=== PATIENT | female | born 2000 | race Two or more races ===

== ENCOUNTER 2020-04-20 07:03 | Inpatient (IN) | payer MEDICAID ==
[2020-04-20 08:13] LABS: BACTERIA (WET MOUNT) 3+ BACTERIA SEEN; RBCS (WET MOUNT) FEW RBCS SEEN; T.VAGINALIS (WET MOUNT) NO TRICHOMONAS SEEN; WBCS (WET MOUNT) 2+ WBCS SEEN; YEAST (WET MOUNT) NO YEAST SEEN
[2020-04-20 08:20] LABS: ABSOLUTE EOSINOPHILS # (AUTO) 0.2 10^3/uL (0.0-0.6); ABSOLUTE LYMPHOCYTES (AUTO) 2.3 10^3/uL (0.5-4.7); ABSOLUTE NEUT (AUTO) 9.7 10^3/uL (1.7-8.2); BASOPHILS % (AUTO) 0.3 % (0-2); EOSINOPHILS % (AUTO) 1.7 % (0-6); HEMATOCRIT 35.2 % (36.0-47.0); HEMOGLOBIN 11.6 g/dL (12.0-15.5); LYMPHOCYTES % (AUTO) 17.1 % (13-45); MEAN CORPUSCULAR HEMOGLOBIN 27.9 pg (27.0-33.4); MEAN CORPUSCULAR VOLUME 84 fl (80-97); MONOCYTES % (AUTO) 7.4 % (3-13); PLATELET COUNT 235 10^3/uL (150-450); RED BLOOD COUNT 4.18 10^6/uL (3.72-5.28); RED CELL DISTRIBUTION WIDTH 17.7 % (11.5-14.0); SEGMENTED NEUTROPHILS % (AUTO) 73.5 % (42-78); TOTAL CELLS COUNTED % (AUTO) 100 %; WHITE BLOOD COUNT 13.2 10^3/uL (4.0-10.5)
[2020-04-20 08:21] LABS: APPEARANCE,URINE SLIGHTLY-CLOUDY; BILIRUBIN,URINE NEGATIVE (NEGATIVE); COLOR,URINE YELLOW; GLUCOSE, URINE NEGATIVE (NEGATIVE); KETONES,URINE NEGATIVE (NEGATIVE); LEUKOCYTE ESTERASE,URINE MODERATE (NEGATIVE); NITRITE,URINE NEGATIVE (NEGATIVE); PROTEIN,URINE NEGATIVE (NEGATIVE); URINE SPECIFIC GRAVITY 1.016; UROBILINOGEN,URINE NEGATIVE mg/dL (<2.0)
[2020-04-20 08:30] LABS: URINE AMPHETAMINES SCREEN NEGATIVE; URINE BARBITURATES SCREEN NEGATIVE; URINE BENZODIAZEPINES SCREEN NEGATIVE; URINE COCAINE SCREEN NEGATIVE; URINE MARIJUANA (THC) SCREEN NEGATIVE; URINE METHADONE SCREEN NEGATIVE; URINE PHENCYCLIDINE SCREEN NEGATIVE
[2020-04-20] MEDS ORDERED: RINGERS SOLUTION,LACTATED 1,000 ML IV PRN (08:44)
[2020-04-20] MEDS ORDERED: CEFAZOLIN 2 GM/D5W RTU 2 GM/50 ML RTUPB IV ONE (09:00)
[2020-04-20] MEDS ORDERED: CITRIC ACID/SODIUM CITRATE ORAL SOLN 15 ML UDCUP ONE (09:00)
[2020-04-20] MEDS ORDERED: CEFAZOLIN SODIUM 2 GM in DEXTROSE 5%-WATER 50 ML IV PRN (09:00)
[2020-04-20] MEDS ORDERED: METHYLERGONOVINE MALEATE INJ/PF 0.2 MG/1 ML AMPULE ONE (09:19)
[2020-04-20] MEDS ORDERED: KETOROLAC TROMETHAMINE INJ/PF 30 MG/1 ML SDV ONE (09:19)
[2020-04-20] MEDS ORDERED: MIDAZOLAM 2 MG/2 ML INJ ONE (09:19)
[2020-04-20] MEDS ORDERED: ACETAMINOPHEN 1,000 MG/100 ML RTUPB IV ONE (09:19)
[2020-04-20] MEDS ORDERED: FENTANYL CITRATE INJ/PF 100 MCG/2 ML AMPUL ONE ×3 (09:19→10:54)
[2020-04-20] MEDS ORDERED: ONDANSETRON HCL INJ/PF 4 MG/2 ML SDV ONE (09:19)
[2020-04-20] MEDS ORDERED: OXYTOCIN 10 UNIT/ML VIAL ONE (09:19)
[2020-04-20] MEDS ORDERED: EPHEDRINE SULFATE INJ 50 MG/1 ML AMPULE ONE (09:20)
--- NOTE | 2020-04-20 09:20 | Admission Physical ---
Datetime Report Generated by CPN: 04/20/2020 09:20 CURRENT ADMISSION Chief Complaint: Maternal Discomfort Indication for Induction: Not Applicable Admit Impression : Term, Intrauterine ; No Active Labor Admit Plan: Admit to Unit; Initiate Section Protocol ALLERGIES Medication Allergies: No Medication Allergies: No Known Allergies (04/20/2020) Latex: No Latex Allergies OBSTETRICAL HISTORY EDC: 04/14/2020 00:00 : 1 Para: 0 Term: 0 : 0 SAB: 0 IAB: 0 [place] PHYSICAL EXAM General: Normal HEENT: Normal Neurologic: Normal Thyroid: Normal Heart: Normal Lungs: Normal Breast: Normal Back: Normal Abdomen: Normal Genitourinary Exam: Normal Extremities: Normal DTRs: Normal Pelvic Type: Adequate Vital Signs: Reviewed; Within Normal Limits VAGINAL EXAM Dilatation: 0 FETUS A EGA: 40.6 Monitoring: External US FHR- Baseline: 105 Variability: Marked >25bpm Accelerations: 15X15 Decelerations: None FHR Category: Category II Estimated Weight (gm): 3224 Presentation: Vertex Admit Comment: patient presented with c/o back pain. NST category 2 with multiple decels and a questionable low baseline. Decels easily audible in room and suggestive of distress. d/w pt and recommend emergent delivery via c/section due to questionable status. INFORMED CONSENT Signature: with User ID: [email or web address]
--- NOTE | 2020-04-20 09:23 | RADIOLOGY REPORT (SQ) ---
EXAM DESCRIPTION: U/S OB LIMITED IMAGES COMPLETED DATE/TIME: 04/20/2020 8:51 am REASON FOR STUDY: no care COMPARISON: None. TECHNIQUE: Limited transvaginal grayscale ultrasound for evaluation of specific requested obstetrica l parameters. LIMITATIONS: None. FINDINGS: CERVICAL LENGTH: 2.4 cm. Closed. PAXTON: 3.9 cm. FHR: 124 beats per minute. PRESENTATION: Cephalic. PLACENTA: Anterior ANATOMY: Limited evaluation. OTHER: Estimated gestational age 37 weeks 4 days. Estimated due date 05/07/2020. Estimated weig ht 3224 g. IMPRESSION: LIMITED OBSTETRICAL ULTRASOUND WITH MEASURED PARAMETERS DELINEATED ABOVE. Trimester of : Third trimester - 28 weeks to delivery. TECHNICAL DOCUMENTATION: JOB ID: [id number] [employer]- All Rights Reserved Reading location - IP/workstation name: [email or web address]
[2020-04-20 09:42] LABS: CHLAM PCR DETECTED (NOT DETECT)
[2020-04-20] MEDS ORDERED: MORPHINE SULFATE 10 MG/ML INJ IV PRN ×2 (10:04→10:25)
[2020-04-20] MEDS ORDERED: FENTANYL CITRATE INJ/PF 100 MCG/2 ML AMPUL IV PRN ×2 (10:04)
[2020-04-20] MEDS ORDERED: MEPERIDINE HCL/PF INJ 25 MG/1 ML DISP.SYRIN IV PRN (10:04)
[2020-04-20] MEDS ORDERED: DIPHENHYDRAMINE HCL 50 MG/ML VIAL IV PRN (10:04)
[2020-04-20] MEDS ORDERED: OXYCODONE-ACETAMINOPHEN 5-325 MG TABLET PO PRN ×3 (10:04→10:25)
[2020-04-20] MEDS ORDERED: ONDANSETRON HCL INJ/PF 4 MG/2 ML SDV IV PRN (10:04)
[2020-04-20] MEDS ORDERED: PROMETHAZINE HCL INJ 25 MG/1 ML VIAL IV PRN ×3 (10:04→10:25)
[2020-04-20] MEDS ORDERED: AZITHROMYCIN INJ 500 MG VIAL IV ONE ×2 (10:21→10:25)
--- NOTE | 2020-04-20 10:24 | Operative Report ---
Operative Report DATE OF SURGERY: 04/20/20 PREOPERATIVE DIAGNOSIS: IUP at 40 weeks and 6 days, no care, oligo hy dramnios. Nonreassuring heart tones, category 2 strip POSTOPERATIVE DIAGNOSIS: Same OPERATION: Primary low transverse hysterotomy section SURGEON: FAITH MARION ANESTHESIA: Spinal TISSUE REMOVED OR ALTERED: Placenta COMPLICATIONS: None ESTIMATED BLOOD LOSS: 600 INTRAOPERATIVE FINDINGS: Male infant cephalic presentation with Apgars of 9 and 9, amniotic fluid was absent PROCEDURE: PROCEDURE IN DETAIL: The patient was taken to the operating room, prepared and draped in a normal sterile fashion in a supine position with a leftward tilt. A transverse skin incision was made with a scalpel and carried through to the underlying layer of fascia with the same scalpel. The fascia was excised in the midline and extended laterally with Kemar. The fascia was then dissected from the rectus muscle sharply with Kemar and the rectus muscle was divided and the peritoneal cavity was entered sharply with the same Metzenbaum. With good visualization of the bladder and the uterus the bladder blade was inserted. The hysterotomy was nicked with a scalpel and extended laterally with surgeon finger fraction. The infant was then delivered atraumatically. The nose and mouth were suctioned with a suction bulb, the cord was clamped and cut and handed off to awaiting pediatricians. Cord blood was collected. The placenta was removed manually. The uterus was exteriorized and cleared of clots and debris. The hysterotomy was closed with 0 Monocryl in a running, locked fashion. A second layer of the same suture was used to imbricate to ensure hemostasis. The uterus was returned to the abdomen and peritoneal cavity was cleared of clots and debris. The rectus muscle and peritoneum were repaired with mattress stitch of 2-0 Chromic. The fascia was closed with 0-Vicryl. The subcutaneous layer was closed with plain catgut and the skin was closed with 4-0 Vicryl. The patient tolerated the procedure well. Sponge, lap, and needle counts correct x2 and the patient was taken to recovery in stable condition.
[2020-04-20] MEDS ORDERED: MEASLES,MUMPS&RUBELLA VACC/PF 0.5 ML VIAL SUBCUT PRN (10:25)
[2020-04-20] MEDS ORDERED: SIMETHICONE 80 MG TAB.CHEW PO PRN (10:25)
[2020-04-20] MEDS ORDERED: OXYTOCIN/0.9 % SODIUM CHLORIDE 30 UNIT/500 ML RTUINJ IV PRN (10:25)
[2020-04-20] MEDS ORDERED: ACETAMINOPHEN 325 MG TABLET PO PRN (10:25)
[2020-04-20] MEDS ORDERED: ACETAMINOPHEN 1,000 MG/100 ML RTUPB IV PRN (10:25)
[2020-04-20] MEDS ORDERED: DIPH/PERTUSS(ACELL)/TETANUS VAC/PF 0.5 ML SYR (>=10YO) IM PRN (10:25)
[2020-04-20] MEDS: FENTANYL CITRATE INJ/PF 100 MCG/2 ML AMPUL IV PRN ×2 (10:29→10:55)
[2020-04-20] MEDS ORDERED: OXYTOCIN/0.9 % SODIUM CHLORIDE 30 UNIT/500 ML RTUINJ ONE (10:31)
[2020-04-20] MEDS ORDERED: ROPIVACAINE HCL 0.2% INJ/PF (2 MG/ML) 20 ML SDV ONE (10:38)
[2020-04-20] MEDS ORDERED: EPINEPHRINE INJ/PF 1 MG/1 ML AMPULE ONE (10:38)
[2020-04-20] MEDS ORDERED: MORPHINE SULFATE 10 MG/ML INJ ONE (11:42)
[2020-04-20] MEDS: OXYCODONE-ACETAMINOPHEN 5-325 MG TABLET PO PRN ×2 (13:11→23:44)
[2020-04-20] MEDS: KETOROLAC TROMETHAMINE INJ/PF 30 MG/1 ML SDV IV SCH (17:37)
[2020-04-20] MEDS: DOCUSATE SODIUM 100 MG CAPSULE PO SCH (17:38)
[2020-04-20] MEDS: RINGERS SOLUTION,LACTATED 1,000 ML IV PRN (17:42)
[2020-04-21] MEDS: KETOROLAC TROMETHAMINE INJ/PF 30 MG/1 ML SDV IV SCH (01:35)
[2020-04-21] MEDS: RINGERS SOLUTION,LACTATED 1,000 ML IV PRN (01:36)
[2020-04-21] MEDS: OXYCODONE-ACETAMINOPHEN 5-325 MG TABLET PO PRN ×2 (06:14→18:42)
[2020-04-21 07:41] LABS: HEMATOCRIT 21.2 % (36.0-47.0); MEAN CORPUSCULAR HEMOGLOBIN 28.2 pg (27.0-33.4); MEAN CORPUSCULAR HGB CONC 33.3 g/dL (32.0-36.0); MEAN CORPUSCULAR VOLUME 85 fl (80-97); PLATELET COUNT 179 10^3/uL (150-450); RED BLOOD COUNT 2.51 10^6/uL (3.72-5.28); RED CELL DISTRIBUTION WIDTH 17.4 % (11.5-14.0); WHITE BLOOD COUNT 13.8 10^3/uL (4.0-10.5)
[2020-04-21 07:56] LABS: HEMOGLOBIN 7.1 g/dL (12.0-15.5)
[2020-04-21] MEDS ORDERED: MEASLES,MUMPS&RUBELLA VACC/PF 0.5 ML VIAL SUBCUT PRN (08:30)
[2020-04-21] MEDS ORDERED: PROMETHAZINE HCL INJ 25 MG/1 ML VIAL IV PRN (08:30)
[2020-04-21] MEDS ORDERED: DIPH/PERTUSS(ACELL)/TETANUS VAC/PF 0.5 ML SYR (>=10YO) IM PRN (08:30)
--- NOTE | 2020-04-21 08:33 | PDOC PROGRESS REPORT ---
Subjective-OB Progress Note for:: 04/21/20 Physical Exam (OB) Vital Signs: Temp Pulse Resp BP Pulse Ox 98.5 F 97 18 105/55 L 99 04/21/20 04:23 04/21/20 04:23 04/21/20 04:23 04/21/20 04:23 04/21/20 04:23 Intake & Output 04/20/20 04/21/20 04/22/20 06:59 06:59 06:59 Intake Total 1528 Output Total 575 Balance 953 Weight 66.9 kg - General General Appearance: Appears well Note:: Admit hgb 11.6. This am 7.4. Not symptomatic. Ambulating without problem. Will give iv iron. - Dressing Removed: No Incision: Dressing Closure Type: Opsite - Lochia Lochia Amount: Scant < 10 ml Lochia Color: Rubra/Red - Abdomen Description: Soft, Round Hernia Present: No Bowel Sounds: Normoactive Flatus Presence: Absent Stool: No Fundal Description: Firm, Midline Fundal Height: u/u - u/2 Objective-Diagnostic Laboratory: 04/21/20 07:02 04/20/20 04/20/20 04/20/20 07:34 07:55 09:08 WBC 13.2 H RBC 4.18 Hgb 11.6 L Hct 35.2 L MCV 84 MCH 27.9 MCHC 33.0 RDW 17.7 H Plt Count 235 Seg Neutrophils % 73.5 Urine Color YELLOW Urine Appearance SLIGHTLY-CLOUDY Urine pH 6.0 Ur Specific [place] 1.016 Urine Protein NEGATIVE Urine Glucose (UA) NEGATIVE Urine Ketones NEGATIVE Urine Blood MODERATE H Urine Nitrite NEGATIVE Ur Leukocyte Esterase MODERATE H Urine WBC (Auto) 20 Urine RBC (Auto) 7 Blood Type A POSITIVE Antibody Screen NEGATIVE 04/21/20 07:02 WBC 13.8 H RBC 2.51 L Hgb 7.1 L D Hct 21.2 L MCV 85 MCH 28.2 MCHC 33.3 RDW 17.4 H Plt Count 179 Seg Neutrophils % Urine Color Urine Appearance Urine pH Ur Specific [place] Urine Protein Urine Glucose (UA) Urine Ketones Urine Blood Urine Nitrite Ur Leukocyte Esterase Urine WBC (Auto) Urine RBC (Auto) Blood Type Antibody Screen
[2020-04-21] MEDS ORDERED: IRON SUCROSE COMPLEX INJ/PF 100 MG/5 ML SDV IV ONE (09:00)
[2020-04-21] MEDS: DOCUSATE SODIUM 100 MG CAPSULE PO SCH ×2 (09:30→18:40)
[2020-04-21] MEDS: PRENATAL VITAMIN W DHA CAPSULE PO SCH (09:30)
[2020-04-21] MEDS: IBUPROFEN 800 MG TABLET PO SCH ×3 (12:03→23:24)
[2020-04-22] MEDS: IBUPROFEN 800 MG TABLET PO SCH ×4 (05:30→23:10)
[2020-04-22 08:05] LABS: HEPATITS B SURFACE ANTIGEN Negative (Negative)
[2020-04-22] MEDS: PRENATAL VITAMIN W DHA CAPSULE PO SCH (09:14)
[2020-04-22] MEDS: DOCUSATE SODIUM 100 MG CAPSULE PO SCH ×2 (09:14→17:35)
[2020-04-22] MEDS ORDERED: IRON SUCROSE COMPLEX INJ/PF 100 MG/5 ML SDV IV ONE (11:12)
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
[2020-04-23] MEDS: IBUPROFEN 800 MG TABLET PO SCH ×2 (05:11→12:00)
[2020-04-23] MEDS: OXYCODONE-ACETAMINOPHEN 5-325 MG TABLET PO PRN (06:40)
[2020-04-23 09:47] LABS: ABSOLUTE EOSINOPHILS # (AUTO) 0.4 10^3/uL (0.0-0.6); ABSOLUTE LYMPHOCYTES (AUTO) 1.8 10^3/uL (0.5-4.7); ABSOLUTE MONOCYTES (AUTO) 0.5 10^3/uL (0.1-1.4); ABSOLUTE NEUT (AUTO) 7.2 10^3/uL (1.7-8.2); BASOPHILS % (AUTO) 0.3 % (0-2); HEMATOCRIT 20.8 % (36.0-47.0); MEAN CORPUSCULAR HEMOGLOBIN 29.1 pg (27.0-33.4); MEAN CORPUSCULAR HGB CONC 33.5 g/dL (32.0-36.0); MEAN CORPUSCULAR VOLUME 87 fl (80-97); MONOCYTES % (AUTO) 5.2 % (3-13); PLATELET COUNT 222 10^3/uL (150-450); RED BLOOD COUNT 2.39 10^6/uL (3.72-5.28); SEGMENTED NEUTROPHILS % (AUTO) 72.5 % (42-78); TOTAL CELLS COUNTED % (AUTO) 100 %; WHITE BLOOD COUNT 9.9 10^3/uL (4.0-10.5)
[2020-04-23] MEDS: DOCUSATE SODIUM 100 MG CAPSULE PO SCH (09:55)
[2020-04-23] MEDS: PRENATAL VITAMIN W DHA CAPSULE PO SCH (09:55)
--- NOTE | 2020-04-23 12:19 | PDOC DISCHARGE SUMMARY ---
Impression - Admit/DC Date/PCP Admission Date/Primary Care Provider: 04/20/20 09:00 FAITH MARION MD Discharge Date: 04/23/20 - Discharge Diagnosis (1) Non-reassuring electronic monitoring tracing Is this a current diagnosis for this admission?: Yes (2) Smoker Is this a current diagnosis for this admission?: Yes (3) Chlamydia infection Is this a current diagnosis for this admission?: Yes (4) Insufficient antepartum care Is this a current diagnosis for this admission?: Yes (5) Delivery by emergency caesarean section Is this a current diagnosis for this admission?: Yes (6) Is this a current diagnosis for this admission?: Yes (7) Acute blood loss anemia Is this a current diagnosis for this admission?: Yes - Assessment Summary: 19yo G1 now P1 s/p primary ppd3. Stable and ready for discharge. Understands all warning s/s and how/when to seek immediate care. Also understands she needs to rtc for incision check. - Additional Information Resuscitation Status: Full Code Discharge Diet: As Tolerated, Regular Discharge Activity: Activity As Tolerated, Balance Activity w/Rest, No Lifting Over 10 Pounds, No Lifting/Push/Pulling, Pelvic Rest, No tub bath, Walk Frequently Referrals: FAITH MARION MD [Primary Care Provider] - Prescriptions: Oxycodone HCl/Acetaminophen [Percocet 5-325 mg Tablet] 1 tab PO Q4HP PRN #30 tablet PRN Reason: For Pain Scale 3-5 Ibuprofen [Motrin 800 mg Tablet] 800 mg PO Q8HP PRN #60 tablet PRN Reason: Home Medications: Ibuprofen [Motrin 800 mg Tablet] 800 mg PO Q8HP PRN #60 tablet 04/22/20 Oxycodone HCl/Acetaminophen [Percocet 5-325 mg Tablet] 1 tab PO Q4HP PRN #30 tablet 04/22/20 Results Laboratory Results: WBC 9.9 10^3/uL (4.0-10.5) 04/23/20 09:15 RBC 2.39 10^6/uL (3.72-5.28) L 04/23/20 09:15 Hgb 7.0 g/dL (12.0-15.5) L 04/23/20 09:15 Hct 20.8 % (36.0-47.0) L 04/23/20 09:15 MCV 87 fl (80-97) 04/23/20 09:15 MCH 29.1 pg (27.0-33.4) 04/23/20 09:15 MCHC 33.5 g/dL (32.0-36.0) 04/23/20 09:15 RDW 18.0 % (11.5-14.0) H 04/23/20 09:15 Plt Count 222 10^3/uL (150-450) 04/23/20 09:15 Lymph % (Auto) 18.0 % (13-45) 04/23/20 09:15 [place] % (Auto) 5.2 % (3-13) 04/23/20 09:15 Eos % (Auto) 4.0 % (0-6) 04/23/20 09:15 Baso % (Auto) 0.3 % (0-2) 04/23/20 09:15 Absolute Neuts (auto) 7.2 10^3/uL (1.7-8.2) 04/23/20 09:15 Absolute Lymphs (auto) 1.8 10^3/uL (0.5-4.7) 04/23/20 09:15 Absolute Monos (auto) 0.5 10^3/uL (0.1-1.4) 04/23/20 09:15 Absolute Eos (auto) 0.4 10^3/uL (0.0-0.6) 04/23/20 09:15 Absolute Basos (auto) 0.0 10^3/uL (0.0-0.2) 04/23/20 09:15 Seg Neutrophils % 72.5 % (42-78) 04/23/20 09:15 Urine Color YELLOW 04/20/20 07:34 Urine Appearance SLIGHTLY-CLOUDY 04/20/20 07:34 Urine pH 6.0 (5.0-9.0) 04/20/20 07:34 Ur Specific [place] 1.016 04/20/20 07:34 Urine Protein NEGATIVE mg/dL (NEGATIVE) 04/20/20 07:34 Urine Glucose (UA) NEGATIVE mg/dL (NEGATIVE) 04/20/20 07:34 Urine Ketones NEGATIVE mg/dL (NEGATIVE) 04/20/20 07:34 Urine Blood MODERATE (NEGATIVE) H 04/20/20 07:34 Urine Nitrite NEGATIVE (NEGATIVE) 04/20/20 07:34 Urine Bilirubin NEGATIVE (NEGATIVE) 04/20/20 07:34 Urine Urobilinogen NEGATIVE mg/dL (<2.0) 04/20/20 07:34 Ur Leukocyte Esterase MODERATE (NEGATIVE) H 04/20/20 07:34 Urine WBC (Auto) 20 /HPF 04/20/20 07:34 Urine RBC (Auto) 7 /HPF 04/20/20 07:34 U Hyaline Cast (Auto) 1 /LPF 04/20/20 07:34 Urine Bacteria (Auto) TRACE /HPF 04/20/20 07:34 Squamous Epi Cells Auto 2 /HPF 04/20/20 07:34 Urine Mucus (Auto) MOD /LPF 04/20/20 07:34 Urine Ascorbic Acid NEGATIVE (NEGATIVE) 04/20/20 07:34 Bacteria (Wet Prep) 3+ BACTERIA SEEN 04/20/20 07:52 Trichomonas (Wet Prep) NO TRICHOMONAS SEEN 04/20/20 07:52 Vaginal WBC 2+ WBCS SEEN 04/20/20 07:52 Vaginal RBC FEW RBCS SEEN 04/20/20 07:52 Vaginal Yeast NO YEAST SEEN 04/20/20 07:52 Urine Opiates Screen NEGATIVE 04/20/20 07:34 Urine Methadone Screen NEGATIVE 04/20/20 07:34 Ur Barbiturates Screen NEGATIVE 04/20/20 07:34 Ur Phencyclidine Scrn NEGATIVE 04/20/20 07:34 Ur Amphetamines Screen NEGATIVE 04/20/20 07:34 U Benzodiazepines Scrn NEGATIVE 04/20/20 07:34 Urine Cocaine Screen NEGATIVE 04/20/20 07:34 U Marijuana (THC) Screen NEGATIVE 04/20/20 07:34 RPR NONREACTIVE (NONREACTIVE) 04/20/20 07:55 Chlamydia DNA (PCR) DETECTED (NOT DETECT) H 04/20/20 07:34 Hep Bs Antigen Negative (Negative) 04/20/20 07:55 HIV 1&2 Antibody NEGATIVE (NEGATIVE) 04/20/20 09:08 N.gonorrhoeae DNA (PCR) NOT DETECTED (NOT DETECT) 04/20/20 07:34 Rubella IgG Antibody 12.80 IU/mL 04/20/20 07:55 Rubella IgG Ab Interp POSITIVE 04/20/20 07:55 Blood Type A POSITIVE 04/20/20 09:08 Antibody Screen NEGATIVE 04/20/20 09:08 Impressions: Obstetrics Ultrasound 04/20/20 07:49 IMPRESSION: LIMITED OBSTETRICAL ULTRASOUND WITH MEASURED PARAMETERS DELINEATED ABOVE. Trimester of : Third trimester - 28 weeks to delivery. Plan Plan of Treatment: pt to F/u at [facility] for incision check on Tuesday needs pap in September
[2020-04-23 13:04] VITALS: BP 114/59
[2020-04-24 22:36] LABS: HEPATITIS C QUANTITATION HCV Not Detected IU/mL (.)
[2020-04-25] MEDS ORDERED: IBUPROFEN 800 MG TABLET PO SCH (18:00)
== END 2020-04-23 16:52 | disposition home or self-care (01) | DRG 787 ==
LOC: LC 07:03 → LR 09:00 → 2N 12:15
PROVIDERS: ADMIT Obstetrics & Gynecology; ATTEND Obstetrics & Gynecology
PROC: 10D00Z1 Extraction of Products of Conception, Low, Open Approach (ICD-10-PCS; principal; 2020-04-20)
DX: O41.03X0 Oligohydramnios, third trimester, not applicable or unspecified (principal); O98.32 Other infections with a predominantly sexual mode of transmission complicating childbirth; D62 Acute posthemorrhagic anemia; O76 Abnormality in fetal heart rate and rhythm complicating labor and delivery; O99.334 Smoking (tobacco) complicating childbirth; A56.8 Sexually transmitted chlamydial infection of other sites; O99.02 Anemia complicating childbirth; F17.210 Nicotine dependence, cigarettes, uncomplicated; F12.90 Cannabis use, unspecified, uncomplicated; Z37.0 Single live birth; Z3A.40 40 weeks gestation of pregnancy
CPT/HCPCS: 1961; 36415; 64450; 76815; 76942; 80307; 81001; 85025; 85027; 86592; 86701; 86762; 86850; 86900; 86901; 87081; 87210; 87340; 87491; 87522; 87591; 88307; 94760; 94799; 99140; C1758; J0131; J0171; J0456; J0690; J1756; J1885; J2210; J2250; J2270; J2405; J2590; J2795; J3010; J3490; J7120